=== PATIENT | male | born 1955 | race Caucasian/White ===

== ENCOUNTER → 2022-09-12 09:25 | Outpatient (CLI) | payer OTHER, SELFPAY ==
--- NOTE | 2022-09-12 09:28 | DI.MRI.S_ITS ---
PROCEDURE: MR ANKLE LT WO CON INDICATIONS: SPRAIN OF LIGAMENT OF LEFT ANKLE TECHNIQUE: Noncontrast sagittal T1 spin echo and T2 fast spin echo with fat saturation, axial proton density fast spin echo and T2 fast spin echo with fat saturation, coronal T1 spin echo and T2 fast spin echo with fat saturation through the ankle/hindfoot. COMPARISON: None. FINDINGS: Image quality: Excellent. Findings: Imaging finding shows [id number] thickening involving the mid substance of the Achilles tendon consistent with tendinopathy. There is some some associated edematous change in the surrounding soft tissues consistent with some acute inflammation. Remainder of the ankle ligaments and tendons appear intact. There is decreased signal present in the sinus tarsi region with an associated small 2-3 mm ganglion present. 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 There is thickening of the proximal plantar fascia to 7 mm with a calcaneal heel spur present suggesting plantar fasciitis. I do not see acute inflammation in this region at the present time. There is some mild to moderate osteoarthritic type degenerative change involving the articulation between the navicular bone with the cuneiforms and calcaneal cuboid joint. I do not see any significant joint effusions. No findings to suggest osteochondral defects are seen. Visualized musculature appears within normal limits. IMPRESSION: 1. Mild to moderate thickening involving the mid substance of the Achilles tendon consistent with tendinopathy. There is associated edematous changes the adjacent soft tissues consistent with acute inflammation. 2. Thickening involving the proximal plantar fascia to approximately 7 mm suggesting plantar fasciitis. However at the present time I do not see acute inflammatory change present. 3. Findings consistent with sinus tarsi syndrome. 4. Mild to moderate osteoarthritic type degenerative change involving the articulation between the navicular and cuneiforms as well as the calcaneal cuboid joint. Dictated by: Corbin Earl M.D. on 09/12/2022 at 10:33 Approved by: Corbin Earl M.D. on 09/12/2022 at 10:57
== END ==
PROVIDERS: PCP Family Medicine; Referring Provider Orthopaedic Surgery Foot and Ankle Surgery; Visit Provider Orthopaedic Surgery Foot and Ankle Surgery
DX: S93.492S Sprain of other ligament of left ankle, sequela (principal); X58.XXXA Exposure to other specified factors, initial encounter
CPT/HCPCS: 73721

== ENCOUNTER → 2024-03-19 10:27 | Outpatient (CLI) | payer MEDICARE, SELFPAY ==
[2024-03-19 19:24] LABS: Hemoglobin 14.2 g/dL (13.5-17.5); Mean Corpuscular HGB Conc 34.7 % (30-36); Mean Corpuscular Hemoglobin 30.5 PG (26-34); Mean Corpuscular Volume 88.1 fL (80-100); Platelet Count 295 X10^3/uL (150-400); Red Blood Cell Count 4.65 X10^6/uL (4.5-5.9); Red Cell Distribution Width 13.1 % (11.6-14.8); White Blood Cell Count 5.1 X10^3/uL (4.5-11.0)
[2024-03-19 19:25] LABS: Add Manual Diff / Slide Review YES
[2024-03-19 20:26] LABS: Neutrophils Absolute Manual 2040 /uL (3000-5900); RBC Morphology Normal Morphology; Total Cells Counted 100
[2024-03-19 20:59] LABS: Alanine Aminotransferase 18 IU/L (<50); Albumin 4.6 g/dL (3.5-5.0); Albumin Globulin Ratio 1.2 (1.0-2.8); Alkaline Phosphatase 69 U/L (38-126); Aspartate Aminotransferase 31 IU/L (17-59); BUN Creatinine Ratio 23.5 (6-22); Bilirubin Total 0.7 mg/dL (0.2-1.3); Blood Urea Nitrogen 20 mg/dL (9-20); Calcium 9.3 mg/dL (8.4-10.2); Carbon Dioxide 22 mmol/L (22-32); Chloride 108 mmol/L (98-107); Estimated Glomerular Filt Rate > 60 mL/min (>60); Globulin 3.7 g/dL (1.7-4.1); Glucose 106 mg/dL (80-110); Potassium 4.6 mmol/L (3.4-5.1); Sodium 140 mmol/L (137-145); Total Protein 8.3 g/dL (6.3-8.2); Uric Acid 7.9 mg/dL (3.5-8.5)
[2024-03-19 21:02] LABS: HEMOLYSIS 51 (0-50)
== END ==
PROVIDERS: PCP Physician Assistant Medical; Visit Provider Physician Assistant Medical
DX: M25.561 Pain in right knee (principal)
CPT/HCPCS: 80053; 84550; 85007; 85025

== ENCOUNTER 2024-03-31 16:10 | Emergency (ER) | payer MEDICARE, SELFPAY ==
[2024-03-31 16:20] VITALS: BP 143/75; PULSE 80; RESP 17; TEMP 36.4; O2SAT 98; BMI 32.1
--- NOTE | 2024-03-31 16:49 | DI.RAD.S_ITS ---
PROCEDURE: XR FOOT RT MIN 3V INDICATIONS: pain TECHNIQUE: 3 views of the foot were acquired. COMPARISON: [facility] ([facility]), CR, XR FOOT RT MIN 3V, 09/09/2023, 14:01. FINDINGS: Bones: No acute fractures or dislocations. No suspicious bony lesions. 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 Small posterior and plantar calcaneal enthesophytes. Soft tissues: Nonspecific soft tissue edema at the dorsum of the foot. IMPRESSION: 1. Nonspecific soft tissue edema. No acute osseous abnormality. If symptoms persist or if there is continued clinical concern, cross-sectional imaging such as MRI or CT may be helpful for further evaluation. 2. 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 Approved by: Osmin Diana M.D. on 03/31/2024 at 18:47
--- NOTE | 2024-03-31 16:49 | DI.US.S_ITS ---
PROCEDURE: US PERIPH VENOUS LOW EXTREM RT INDICATIONS: pain and swelling TECHNIQUE: Real-time imaging, as well as color and pulse Doppler interrogation, were performed of the lower extremity deep veins from the inguinal ligament to the popliteal fossa, with documentation of the visualized calf veins. COMPARISON: None. FINDINGS: Deep venous thrombus is seen within 1 of 2 paired posterior tibial veins. The common femoral, femoral, and popliteal veins are normally compressible, and free of intraluminal thrombus. Color and pulse Doppler demonstrate normal phasic intraluminal flow. There is normal augmentation response to distal compression maneuver. IMPRESSION: Deep venous thrombosis within 1 of 2 paired posterior tibial veins. Findings were discussed with the Dr. Morton by telephone on 03/31/2024 at 6:45 PM. Approved by: Osmin Diana M.D. on 03/31/2024 at 18:45
--- NOTE | 2024-03-31 18:02 | ED_ITS ---
HPI - Extremity Injury (Lower) General Chief Complaint: Extremity Injury, Lower Stated Complaint: states sent for US Time Seen by Provider: 03/31/24 17:49 Source: patient Mode of arrival: Ambulatory History of Present Illness HPI Narrative: 68-year-old male with no reported past medical history presents for evaluation of right foot swelling for the last 2 3 weeks. Patient states that decades ago he had rebar through his foot and states that there is a ?nidus? of infection that he thinks may be causing his symptoms. He went to the clinic on [facility], who referred him to the emergency department for ultrasound and evaluation. Related Data Previous Rx's Medication Instructions Recorded apixaban 5 mg tablet 5 mg PO BID #60 tabs 03/31/24 Allergies Allergy/AdvReac Type Severity Reaction Status Date / Time No Known Drug Allergies Allergy Verified 03/31/24 16:25 Patient History Medical History Umbilical hernia Social History Smoking Status: Never smoker Smoking Status: Never smoker alcohol intake frequency: other Substance Use Type: does not use Exam Initial Vital Signs Initial Vital Signs: Vital Signs Temperature 97.5 F L 03/31/24 16:20 Pulse Rate 80 03/31/24 16:20 Respiratory Rate 17 03/31/24 16:20 Blood Pressure 143/75 H 03/31/24 16:20 Pulse Oximetry 98 03/31/24 16:20 Oxygen Delivery Method Room Air 03/31/24 16:20 Const: Awake, alert, no acute distress, nontoxic appearing Cardiac: regular rate, regular rhythm RESP: unlabored, clear bilaterally, no wheezing MSK: 3+ nonpitting edema from ankle to toes right foot, 3+ DP pulses Skin: Warm, Dry, intact, no rashes Neuro: AO x3, CN II-XII grossly intact, moves all extremities Course Orders Ordered: ED Orders 03/31/24 16:48 Blood Culture Stat 03/31/24 16:49 US periph venous low extrem rt Stat XR foot RT min 3V Stat 03/31/24 17:53 CMP [Comprehensive Metabolic Panel] Stat Complete Blood Count AUTO DIFF Stat Lactate (Lactic Acid) Stat Procalcitonin Stat Prothrombin Time INR Stat 03/31/24 18:52 CT LE RT w con Stat Discontinued Medications Apixaban (Apixaban 5 Mg Tablet) 10 mg PO NOW ONE Stop: 03/31/24 19:57 Vital Signs Vital signs: Vital Signs - 8 hr 03/31/24 16:20 Temperature 97.5 F L Pulse Rate 80 Respiratory Rate 17 Blood Pressure 143/75 H Pulse Oximetry 98 Oxygen Delivery Method Room Air MDM - Extremity Injury (Lower) Lab Data 03/31/24 17:53 03/31/24 17:53 Labs: Lab Results 03/31/24 Range/Units 17:53 WBC 7.2 (4.5-11.0) X10^3/uL RBC 3.98 L (4.5-5.9) X10^6/uL Hgb 12.1 L (13.5-17.5) g/dL Hct 34.7 L (41-53) % MCV 87.1 (80-100) fL MCH 30.4 (26-34) PG MCHC 34.8 (30-36) % RDW 12.6 (11.6-14.8) % Plt Count 363 (150-400) X10^3/uL Neut % (Auto) 55.7 (50-75) % Lymph % (Auto) 31.1 (25-40) % [place] % (Auto) 11.3 (3-14) % Eos % (Auto) 1.6 L (2-4) % Baso % (Auto) 0.3 (0-2) % Neut # (Auto) 4000 (5402-9403) /uL Lymph # (Auto) 2300 (9629-5087) /uL [place] # (Auto) 800 (0-900) /uL Eos # (Auto) 100 (0-450) /uL Baso # (Auto) 0 (0-100) /uL PT 13.1 H (9.4-12.5) SECONDS INR 1.1 (0.9-1.3) Sodium 138 (137-145) mmol/L Potassium 3.6 (3.4-5.1) mmol/L Chloride 106 (98-107) mmol/L Carbon Dioxide 25 (22-32) mmol/L BUN 18 (9-20) mg/dL Creatinine 1.05 (0.66-1.25) mg/dL Estimated GFR > 60 (>60) mL/min BUN/Creatinine Ratio 17.1 (6-22) Glucose 98 (80-110) mg/dL Lactate 1.4 (0.7-2.1) mmol/L Calcium 8.9 (8.4-10.2) mg/dL Total Bilirubin 0.5 (0.2-1.3) mg/dL AST 22 (17-59) IU/L ALT 15 (<50) IU/L Alkaline Phosphatase 62 (38-126) U/L Total Protein 8.3 H (6.3-8.2) g/dL Albumin 4.2 (3.5-5.0) g/dL Globulin 4.1 (1.7-4.1) g/dL Albumin/Globulin Ratio 1.0 (1.0-2.8) Procalcitonin 0.045 (<0.5) ng/mL MDM Narrative Medical decision making narrative: Well-appearing patient with several weeks of right foot pain and swelling. Strong DP pulses and intact sensation. US shows DVT in posterior tibial vein. Due to patient's insistent that there is a ?tightness? of infection in his foot a CT with contrast was ordered that shows no focal fluid collection to suggest abscess. Based on the amount of swelling in the patient's foot plan to treat with anticoagulation. Patient did insist on leaving before receiving his 1st dose of blood thinning medication because if it was not leave [place] Patient was counseled on the importance of following up with primary care physician and blood thinners sent to pharmacy of choice. Discharge Plan Departure Patient Disposition: Home Clinical Impression: DVT (deep venous thrombosis) Instructions: DI for Deep Vein Thrombosis Activity Restrictions/Additional Instructions: YOU HAVE A BLOOD CLOT IN YOUR RIGHT LEG THAT IS LEADING TO THE SWELLING. I WILL KEEP AN EYE OUT FOR YOUR CT SCAN AND IF THERE WAS AN INFECTION I WILL LET YOU KNOW, BUT RIGHT NOW I BELIEVE THAT YOUR SYMPTOMS ARE CAUSED BY THE BLOOD CLOT. YOU WILL NEED TO START ANY BLOOD THINNING MEDICATION. PLEASE FOLLOW UP WITH YOUR PRIMARY CARE DOCTOR. Prescriptions: New apixaban 5 mg tablet 5 mg PO BID Qty: 60 0RF Rx Instructions: TAKE 10MG TWICE DAILY FOR 1 WEEK, THEN 5MG TWICE DAILY UNTIL OTHERWISE SPECIFIED BY YOUR PCP Referrals: Kandy Sorensen PA-C [Primary Care Provider] - Stand Alone Forms: Patient Portal/API
[2024-03-31 18:26] LABS: Add Manual Diff / Slide Review NO; Basophils Absolute Auto 0 /uL (0-100); Basophils Percent Auto 0.3 % (0-2); Eosinophils Absolute Auto 100 /uL (0-450); Eosinophils Percent Auto 1.6 % (2-4); Hematocrit 34.7 % (41-53); Hemoglobin 12.1 g/dL (13.5-17.5); Lymphocytes Absolute Auto 2300 /uL (1100-4500); Lymphocytes Percent Auto 31.1 % (25-40); Mean Corpuscular HGB Conc 34.8 % (30-36); Mean Corpuscular Hemoglobin 30.4 PG (26-34); Mean Corpuscular Volume 87.1 fL (80-100); Monocytes Absolute Auto 800 /uL (0-900); Monocytes Percent Auto 11.3 % (3-14); Neutrophils Absolute Auto 4000 /uL (1500-7000); Neutrophils Percent Auto 55.7 % (50-75); Platelet Count 363 X10^3/uL (150-400); Red Blood Cell Count 3.98 X10^6/uL (4.5-5.9); Red Cell Distribution Width 12.6 % (11.6-14.8); White Blood Cell Count 7.2 X10^3/uL (4.5-11.0)
[2024-03-31 18:32] LABS: INR 1.1 (0.9-1.3); Prothrombin Time 13.1 SECONDS (9.4-12.5)
[2024-03-31 18:35] LABS: Alanine Aminotransferase 15 IU/L (<50); Albumin 4.2 g/dL (3.5-5.0); Alkaline Phosphatase 62 U/L (38-126); Aspartate Aminotransferase 22 IU/L (17-59); BUN Creatinine Ratio 17.1 (6-22); Bilirubin Total 0.5 mg/dL (0.2-1.3); Blood Urea Nitrogen 18 mg/dL (9-20); Calcium 8.9 mg/dL (8.4-10.2); Carbon Dioxide 25 mmol/L (22-32); Chloride 106 mmol/L (98-107); Estimated Glomerular Filt Rate > 60 mL/min (>60); Globulin 4.1 g/dL (1.7-4.1); Glucose 98 mg/dL (80-110); Potassium 3.6 mmol/L (3.4-5.1); Sodium 138 mmol/L (137-145); Total Protein 8.3 g/dL (6.3-8.2)
[2024-03-31 18:36] LABS: Lactate (Lactic Acid) 1.4 mmol/L (0.7-2.1)
--- NOTE | 2024-03-31 18:52 | DI.CT.S_ITS ---
PROCEDURE: CT LE RT W CON INDICATIONS: FOOT SWELLING, ABSCESS? TECHNIQUE: After the administration of intravenous contrast, 3 mm axial sections acquired of the right lower leg and foot, with coronal and sagittal reformats. For radiation dose reduction, the following was used: automated exposure control, adjustment of mA and/or kV according to patient size. COMPARISON: [facility], CR, XR FOOT RT MIN 3V, 03/31/2024, 17:28[place] [facility] [place] 09/09/2023, 14:01. FINDINGS: Image quality: Excellent. Bones: No acute osseous fracture or dislocation. Ossification adjacent to the medial malleolus is likely the sequela of a remote prior injury. No osteochondral lesion in the talar dome. Small posterior and plantar calcaneal enthesophytes. Moderate to severe degenerative changes at the 1st metatarsophalangeal joint. Small ossified loose bodies are seen along the posterior joint space. No focal osseous erosion or cortical destruction identified. Soft tissues: Nonspecific subcutaneous edema is seen throughout the lower leg extending into the ankle and foot. No peripherally enhancing fluid collection is seen. No definite skin ulceration. No soft tissue gas. Visualized musculature is normal in bulk without intermuscular fascial edema seen. The articular cartilages, ligaments, tendons are not well evaluated with CT. IMPRESSION: 1. Nonspecific subcutaneous edema throughout the lower leg and foot. No peripherally enhancing abscess or soft tissue gas. No signs of osteomyelitis or fasciitis. 2. 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 Scattered degenerative changes the foot and ankle. No acute osseous fracture. Approved by: Osmin Diana M.D. on 03/31/2024 at 20:28
[2024-03-31 18:54] LABS: HEMOLYSIS < 15 (0-50); Procalcitonin 0.045 ng/mL (<0.5)
--- NOTE | 2024-03-31 20:03 | PC.NURSE ---
Pt noted to be standing in the room gathering his things. Pt asked by this RN if he was leaving. Pt states that he is leaving because he needs to catch the ferry home. AMA paperwork explained to the pt, all questions answered. Pt asking extensively about his pending results. This RN advocates for the pt to stay and explains the process after the pt signs out. Pt verbalizes understanding. On the way out [facility], explains the findings of his resulted tests, but again infroms him that his CT results are pending. Pt discharged w paperwork from the ED. Medications ordered or D/C vitals not obtained due to patients leaving. Pt ambulatory from the ED, on crutches w/o incident.
== END 2024-03-31 21:24 | disposition home or self-care (01) ==
PROVIDERS: Emergency Medicine; Emergency Provider Emergency Medicine; PCP Physician Assistant Medical; Referring Provider Physician Assistant Medical
DX: I82.441 Acute embolism and thrombosis of right tibial vein (principal)
CPT/HCPCS: 36415; 73630; 73701; 80053; 83605; 84145; 85025; 85610; 87040; 93971; 99281; 99284; Q9967